=== PATIENT | male | born 1990 | race Caucasian/White ===

== ENCOUNTER → 2018-07-14 10:00 | Outpatient (CLI) | payer MEDICAID, SELFPAY ==
[2018-07-14 10:42] LABS: INR 2.7 (1.0-3.5); Prothrombin Time 25.3 sec (9.3-10.8)
== END ==
PROVIDERS: PCP Internal Medicine; Visit Provider Physician Assistant Medical
DX: Z79.01 Long term (current) use of anticoagulants (principal)
CPT/HCPCS: 36415; 85610

== ENCOUNTER 2018-08-22 15:18 | Outpatient (CLI) | payer MEDICAID, SELFPAY ==
[2018-08-22 17:12] LABS: INR 2.5 (1.0-3.5); Prothrombin Time 23.3 sec (9.3-10.8)
== END 2018-08-22 15:38 ==
PROVIDERS: PCP Internal Medicine; Visit Provider Physician Assistant Medical
DX: Z79.01 Long term (current) use of anticoagulants (principal)
CPT/HCPCS: 36415; 85610

== ENCOUNTER 2018-10-13 07:55 | Outpatient (CLI) | payer MEDICAID, SELFPAY ==
[2018-10-13 08:24] LABS: INR 2.8 (1.0-3.5); Prothrombin Time 26.3 sec (9.3-10.8)
== END 2018-10-13 08:15 ==
PROVIDERS: PCP Internal Medicine; Visit Provider Physician Assistant Medical
DX: Z79.01 Long term (current) use of anticoagulants (principal); R69 Illness, unspecified
CPT/HCPCS: 36415; 85610

== ENCOUNTER 2018-12-15 09:41 | Outpatient (CLI) | payer MEDICAID, SELFPAY ==
[2018-12-15 10:11] LABS: INR 2.7 (0.9-1.1); Prothrombin Time 26.8 sec (9.3-11.0)
== END 2018-12-15 10:01 ==
PROVIDERS: PCP Internal Medicine; Visit Provider Physician Assistant Medical
DX: Z79.01 Long term (current) use of anticoagulants (principal); Z95.5 Presence of coronary angioplasty implant and graft
CPT/HCPCS: 36415; 85610

== ENCOUNTER 2019-02-01 09:41 | Outpatient (CLI) | payer MEDICAID, SELFPAY ==
[2019-02-01 10:29] LABS: INR 2.6 (0.9-1.1); Prothrombin Time 26.7 sec (9.3-11.0)
== END 2019-02-01 10:01 ==
PROVIDERS: PCP Internal Medicine; Visit Provider Physician Assistant Medical
DX: Z79.01 Long term (current) use of anticoagulants (principal)
CPT/HCPCS: 36415; 85610

== ENCOUNTER 2019-03-26 11:08 | Outpatient (REF) | payer MEDICAID, SELFPAY ==
[2019-03-26 20:06] LABS: HCT 46.9 % (40.0-50.0); HGB 16.7 g/dL (13.5-17.5); Mean Corp. HGB Concentration 35.6 g/dL (32.0-36.0); Mean Corpuscular Hemoglobin 31.4 pg (27.0-33.0); Mean Corpuscular Volume 88.2 fL (80-95); Platelet Count 211 x1000/uL (130-400); RBC 5.32 m/cumm (4.50-6.00); RBC Distribution Width 12.4 % (11.8-14.1); White Blood Cell Count 9.94 k/cumm (4.4-10.8)
[2019-03-26 20:19] LABS: BUN 21 mg/dL (7-18); CREATININE 0.86 mg/dL (0.70-1.30); Calcium 9.1 mg/dL (8.5-10.1); Chloride 102 mmol/L (98-107); Glucose 64 mg/dL (70-100); Potassium 4.2 mmol/L (3.5-5.1); Sodium 139 mmol/L (136-145)
== END 2019-03-26 11:28 ==
LOC: NCHCN 11:08
PROVIDERS: PCP Internal Medicine; Visit Provider Physician Assistant Medical
DX: Z95.2 Presence of prosthetic heart valve (principal); Z79.01 Long term (current) use of anticoagulants
CPT/HCPCS: 80048; 85027

== ENCOUNTER 2019-06-07 10:16 | Outpatient (CLI) | payer MEDICAID, SELFPAY ==
[2019-06-07 11:15] LABS: INR 2.5 (0.9-1.1); Prothrombin Time 25.1 sec (9.3-11.0)
== END 2019-06-07 10:36 ==
PROVIDERS: PCP Internal Medicine; Visit Provider Physician Assistant Medical
DX: Z95.2 Presence of prosthetic heart valve (principal); Z79.01 Long term (current) use of anticoagulants
CPT/HCPCS: 36415; 85610

== ENCOUNTER 2019-11-16 15:49 | Outpatient (CLI) | payer MEDICAID, SELFPAY ==
[2019-11-16 16:43] LABS: INR 2.3 (0.9-1.1); Prothrombin Time 22.2 sec (9.3-11.0)
== END 2019-11-16 16:09 ==
PROVIDERS: PCP Internal Medicine; Visit Provider Nurse Practitioner Family
DX: Z79.01 Long term (current) use of anticoagulants (principal); Z95.2 Presence of prosthetic heart valve
CPT/HCPCS: 36415; 85610

== ENCOUNTER 2019-12-10 15:36 | Outpatient (CLI) | payer MEDICAID, SELFPAY ==
[2019-12-10 16:04] LABS: INR 2.1 (0.9-1.1); Prothrombin Time 20.6 sec (9.3-11.0)
== END 2019-12-10 15:56 ==
PROVIDERS: PCP Internal Medicine; Visit Provider Internal Medicine
DX: Z95.2 Presence of prosthetic heart valve (principal); Z79.01 Long term (current) use of anticoagulants
CPT/HCPCS: 36415; 85610

== ENCOUNTER 2019-12-21 09:38 | Outpatient (CLI) | payer MEDICAID, SELFPAY ==
[2019-12-21 10:20] LABS: Prothrombin Time 33.6 sec (9.3-11.0)
[2019-12-21 10:23] LABS: INR 3.4 (0.9-1.1)
== END 2019-12-21 09:58 ==
PROVIDERS: PCP Internal Medicine; Visit Provider Nurse Practitioner Family
DX: Z95.2 Presence of prosthetic heart valve (principal); Z79.01 Long term (current) use of anticoagulants
CPT/HCPCS: 36415; 85610

== ENCOUNTER 2020-01-17 09:46 | Outpatient (CLI) | payer MEDICAID, SELFPAY ==
[2020-01-17 10:12] LABS: INR 3.7 (0.9-1.1); Prothrombin Time 35.6 sec (9.3-11.0)
== END 2020-01-17 10:06 ==
PROVIDERS: PCP Internal Medicine; Visit Provider Nurse Practitioner Family
DX: Z95.2 Presence of prosthetic heart valve (principal); Z79.01 Long term (current) use of anticoagulants
CPT/HCPCS: 36415; 85610

== ENCOUNTER 2020-07-14 09:12 | Outpatient (CLI) | payer MEDICAID, SELFPAY ==
[2020-07-16 21:34] LABS: SARS-CoV-2 RNA Undetected (Undetected)
== END 2020-07-14 09:32 ==
PROVIDERS: PCP Internal Medicine; Visit Provider Family Medicine
DX: Z11.59 Encounter for screening for other viral diseases (principal)
CPT/HCPCS: U0003

== ENCOUNTER → 2022-08-06 14:58 | Outpatient (CLI) | payer MEDICAID, SELFPAY ==
--- NOTE | 2022-08-06 10:01 | DI.RAD_ITS ---
Exam(s) XR LUMBAR SPINE COMPLETE EXAM: XR LUMBAR SPINE COMPLETE CLINICAL HISTORY: RT HIP JOINT PAIN. TECHNIQUE: 2D digital imaging was performed of the lumbar spine. Five images were obtained. AP, la teral, right oblique, left oblique and L5-S1 spot views were obtained. COMPARISON: No exams were available for comparison FINDINGS: BONES: No fracture or destructive lesion. There is mild spurring at the L4-5 disc space. No facet hy pertrophy identified. DISKS: Intervertebral disc spaces are maintained. ALIGNMENT: Lumbar spinal alignment is within normal limits. No spondylolysis or spondylolisthesis. SOFT TISSUE: Normal. IMPRESSION: Mild degenerative changes in the lumbar spine at L4-5. DATA REPOSITORY: RADIATION DOSE DELIVERED:
--- NOTE | 2022-08-06 10:01 | DI.RAD_ITS ---
Exam(s) XR HIP RT COMPLETE AP PELVIS EXAM: XR HIP RT COMPLETE AP PELVIS CLINICAL HISTORY: RT HIP PAIN M25.551. TECHNIQUE: 2D digital imaging was performed of the right hip. Two images were obtained. AP pelvis a nd lateral right hip views were obtained. COMPARISON: No exams were available for comparison FINDINGS: BONES: No acute fracture is present. No bony destructive lesion is seen. JOINTS: No dislocation present. SOFT TISSUE: Normal. IMPRESSION: Unremarkable radiographs of the right hip. Unremarkable radiographs of the pelvis. DATA REPOSITORY: RADIATION DOSE DELIVERED:
== END ==
PROVIDERS: PCP Family Medicine; Visit Provider Family Medicine
DX: M47.816 Spondylosis without myelopathy or radiculopathy, lumbar region (principal); M25.551 Pain in right hip
CPT/HCPCS: 72110; 73502

== ENCOUNTER 2022-08-12 09:09 | Emergency (ER) | payer MEDICAID, SELFPAY ==
[2022-08-12] VITALS (34 sets, daily range): BP systolic 118–142; BP diastolic 74–103; PULSE 69–88; RESP 8–24; TEMP 36.5; O2SAT 99
--- NOTE | 2022-08-12 09:00 | RT.EKG_ITS ---
APPROVED REPORT Exam: Resting ECG Reason for Exam: TACHYCARDIA Patient Location: E HR:87 bpm ECG Measurements Heart Rate 87 AXIS ND 141 P 55 QRSd 91 QRS 66 QT 338 T -46 QTc 403 Conclusion Sinus rhythm...normal P axis, V-rate 60- 99 Atrial premature complexes...SV complexes w/ short R-R intvls. Sinus. Normal axis. T wave inversion in III, seen in previous, new in II and aVF. No STEMI.
--- NOTE | 2022-08-12 09:30 | DI.RAD_ITS ---
Exam(s) XR PORTABLE CHEST AP EXAM: XR PORTABLE CHEST AP CLINICAL HISTORY: chest pain TECHNIQUE: 2D digital imaging was performed of the chest. Two images was obtained. AP views was obt ained. COMPARISON: CR CHEST 2 VIEWS PA,LAT from 10/26/2017 FINDINGS: MEDIASTINUM: Normal. HEART: Normal. Since the prior examination the patient has undergone a valvular replacement. PULMONARY VASCULATURE: Normal. LUNGS: Clear. PLEURAL SPACE: No pleural effusion or pneumothorax. BONE:Within normal limits for the patient's age. Sternal wires are in place. OTHER FINDINGS:Normal. IMPRESSION: No acute pulmonary findings. DATA REPOSITORY: RADIATION DOSE DELIVERED:
[2022-08-12 09:50] LABS: Abs Immature Grans 0.06 10^3/uL (0.0-0.06); Absolute Basophil Count 0.04 10^3/uL (0.0-0.2); Absolute Eosinophil Count 0.26 10^3/uL (0.0-0.7); Absolute Lymphocyte Count 1.98 10^3/uL (1.2-3.4); Absolute Monocyte Count 0.39 10^3/uL (0.1-0.8); Basophils % 0.5; Eosinophils % 3.5; HCT 42.3 % (40.0-50.0); HGB 14.7 g/dL (13.5-17.5); Immature Grans % 0.8; MCH 30.8 pg (27.0-33.0); MCHC 34.8 % (32.0-36.0); MCV 89 fL (80-95); MPV 8.7 fL (8.0-11.0); Monocytes % 5.3; Neutrophils % 62.9; Platelet Count 321 10^3/uL (130-400); RBC 4.78 10^6/uL (4.36-5.78); RDW 12.2 % (11.8-14.1); RDW-SD 39.6 fL; WBC 7.33 10^3/uL (4.4-10.8)
[2022-08-12 10:12] LABS: Prothrombin Time 51.8 sec (9.3-11.0)
[2022-08-12 10:18] LABS: ALT 33 U/L (16-63); AST 38 U/L (15-37); Albumin 3.7 g/dL (3.4-5.0); Alkaline Phosphatase 65 U/L (46-116); Anion Gap 3.5 mmol/L (3-11); BUN 14 mg/dL (7-18); CO2 31.5 mmol/L (21.0-32.0); CREATININE 0.8 mg/dL (0.70-1.30); Calcium 8.9 mg/dL (8.5-10.1); Chloride 101 mmol/L (98-107); Estimated GFR 120.59 (mL/min/1.73m2); Glucose 81 mg/dL (74-106); Magnesium 1.9 mg/dL (1.8-2.4); Potassium 3.9 mmol/L (3.5-5.1); Sodium 136 mmol/L (136-145); Total Protein 7.8 g/dL (6.4-8.2); Troponin I < 50 ng/L (<or=60)
[2022-08-12 10:26] LABS: INR 5.8 (0.9-1.1)
--- NOTE | 2022-08-12 11:55 | ED.GENADUL_ITS ---
Discharge Plan Disposition Patient Disposition: HOME Condition: Stable Discharge Details Clinical Impression: Supratherapeutic INR, Palpitation, Hx of mechanical aortic valve replacement, Hx of mitral valve replacement Primary Care Provider: Shaheen Rhoades ED Provider: Peyton Taylor Home Meds and New Rx's Prescriptions: Continued acetaminophen [Tylenol] 325 mg capsule 325 mg PO ONCE PRN metoprolol succinate 50 mg tablet extended release 24 hr 50 mg PO DAILY Held warfarin 2.5 mg tablet 7.5 mg PO DAILY Hold Instructions: Resume on 08/14/22. pending INR Discharge Instructions Instructions: Heart Palpitations (ED) Additional Instructions: Hold your Coumadin until your INR is improving Check your INR again tomorrow Watch your diet carefully Follow-up with your scarrer schedule appointment regarding her symptoms The specialty clinic Should call you to place that Holter monitor Continue taking her metoprolol as prescribed should you developed any obvious source of bleeding in your urine, stool, or any pressure Renee should be reassessed Should he develop chest pain or shortness of breath or any swelling in your legs or arms, you must return immediately for reassessment Referrals: Shaheen Rhoades MD [Primary Care Provider] - 1 day Discharge Orders Other Ambulatory Orders: Holter Monitor (Routine) Timeframe: 1 Week Facility: [facility] - Location: Respiratory Therapy Ordered By: Peyton Taylor Discharge Data Discharge Date/Time-TO BE ENTERED AT DEPARTURE: 08/12/22 12:37 Medical Decision Making Patient INR 5.8 EKG and troponin without acute abnormality, EKG was compared to prior at [facility] which there is no significant change Reviewed prior echocardiogram Patient has not had tachycardia or obvious ominous dysrhythmia while in the emergency department Clinically low suspicion for PE as patient is supratherapeutic with INR I suspect this is prednisone related and he discontinued this med He will continue to skip his treatment until his INR falls below 4 Case was discussed with Franklyn Hendrix, nurse practitioner [facility] and they will follow up closely with patient He is discharged home with Holter monitor ordered for tomorrow Return precautions discussed and patient expressed understanding Discharged home in stable condition with stable vital Medical Records Medical records reviewed: Yes I reviewed the patient's medical records. Lab Data Lab results reviewed: Yes I reviewed the patient's lab results. HPI General Date/Time Provider Initiated Documentation: 08/12/22 09:21 . HPI Narrative: 32-year-old gentleman with history of mechanical mitral and aortic valves presents with reports of palpitations and tachycardia. Is been going on since yesterday. He states that he had intermittent episodes of heart rate as high as 115. He denies any fever or chills. States taking his Coumadin as prescribed a ctually states that his INR yesterday was 5. He denies any change in diet although he was recently on prednisone and a muscle relaxant, he completed the prednisone 2 days ago. He states that he skipped his dose of Coumadin today. He denies any chest pain. He denies any shortness of breath. He denies any peripheral edema or weight gain. Related Data Home Medications Medication Instructions Recorded Confirmed metoprolol succinate 50 mg 50 mg PO DAILY 07/13/22 07/28/22 tablet,extended release 24 hr warfarin 2.5 mg tablet 7.5 mg PO DAILY 07/13/22 07/28/22 acetaminophen 325 mg capsule 325 mg PO ONCE PRN 07/28/22 07/28/22 (Tylenol) Allergies Allergy/AdvReac Type Severity Reaction Status Date / Time No Known Allergies Allergy Unverified 07/28/22 10:27 General Stated Complaint: Palpitatns SABRINA: 3 Review of Systems All systems reviewed & are unremarkable except as noted in HPI and below PFSH All Active Problems (Updated 08/12/22 @ 11:58 by MADAY Zaragoza) Supratherapeutic INR (Acute) Palpitation (Acute) Hx of mechanical aortic valve replacement (Acute) Hx of mitral valve replacement (Acute) Palpitations (Acute) Dislocation of left shoulder joint (Acute 06/28/22) Fever (Acute) Heart murmur (Acute) Elevated troponin I level (Acute) Anemia (Acute) Right foot pain (Acute) Medical History (Updated 08/12/22 @ 11:58 by MADAY Zaragoza) Adjustment disorder with anxiety H/O bacterial endocarditis Raynauds disease Surgical History (Updated 08/12/22 @ 11:58 by MADAY Zaragoza) History of mechanical aortic valve replacement Social History Smoking/Tobacco Use Status: Never Smoking risk assessment performed?: Yes Alcohol Intake: current Alcohol Intake frequency: a few times a month Drug use: Never Current gender identity: male Do you feel safe at home: Yes Do you feel safe in your relationship?: Yes Exam Const General: cooperative, comfortable and no acute distress Eyes Sclera: sclerae normal Resp Effort & Inspection: normal respiratory effort Auscultation: clear to auscultation bilaterally Cardio Rate: regular rate Rhythm: regular rhythm Other: distal pulses intact GI Inspection: normal to inspection Skin General skin exam: no rashes or lesions noted Neuro General: patient alert and patient oriented x3 Extrem Other: distal pulses intact, no calf swelling or tenderness Course Vital Signs Vital signs: Vital Signs Temperature 36.5 C 08/12/22 09:19 Pulse 88 08/12/22 09:19 Respiratory Rate 10 L 08/12/22 09:19 Blood Pressure 135/81 08/12/22 09:19 Pulse Oximetry 99 08/12/22 09:19 Temperature 36.5 C 08/12/22 09:19 Temperature Source Temporal Artery Scan 08/12/22 09:19 Pulse 72 08/12/22 11:01 Pulse 73 08/12/22 11:01 Respiratory Rate 20 08/12/22 11:01 Respiratory Effort 08/12/22 09:38 Blood Pressure 142/87 H 08/12/22 11:01 Blood Pressure Mean 99 08/12/22 11:01 Blood Pressure Position Sitting 08/12/22 09:19 Pulse Oximetry 99 08/12/22 09:19 Oxygen Delivery Method Room Air 08/12/22 09:19 Oxygen Flow Rate 0 08/12/22 09:19 Pain Level 0 08/12/22 09:19 Lab/Test Results Lab/Test Results: Laboratory Tests Range/Units 08/12/22 08/12/22 08/12/22 09:34 09:34 09:34 WBC (4.4-10.8) 10^3/uL 7.33 RBC (4.36-5.78) 10^6/uL 4.78 Hgb (13.5-17.5) g/dL 14.7 Hct (40.0-50.0) % 42.3 MCV (80-95) fL 89 MCH (27.0-33.0) pg 30.8 MCHC (32.0-36.0) % 34.8 RDW (11.8-14.1) % 12.2 Plt Count (130-400) 10^3/uL 321 MPV (8.0-11.0) fL 8.7 Immature Gran % 0.8 Neutrophils % 62.9 Lymphocytes % 27.0 Monocytes % 5.3 Eosinophils % 3.5 Basophils % 0.5 Nucleated RBC % (0.0-0.3) % 0.0 Absolute Neutrophils (1.2-6.7) 10^3/uL 4.60 Absolute Lymphocytes (1.2-3.4) 10^3/uL 1.98 Absolute Monocytes (0.1-0.8) 10^3/uL 0.39 Absolute Eosinophils (0.0-0.7) 10^3/uL 0.26 Absolute Basophils (0.0-0.2) 10^3/uL 0.04 PT (9.3-11.0) sec 51.8 H INR (0.9-1.1) 5.8 H* Sodium (136-145) mmol/L 136 Potassium (3.5-5.1) mmol/L 3.9 Chloride (98-107) mmol/L 101 Carbon Dioxide (21.0-32.0) mmol/L 31.5 Anion Gap (3-11) mmol/L 3.5 BUN (7-18) mg/dL 14 Creatinine (0.70-1.30) mg/dL 0.8 Est GFR (CKD-EPI 2020) (mL/min/1.73m2) 120.59 Glucose (74-106) mg/dL 81 Calcium (8.5-10.1) mg/dL 8.9 Magnesium (1.8-2.4) mg/dL 1.9 Total Bilirubin (0.2-1.0) mg/dL 1.0 AST (15-37) U/L 38 H ALT (16-63) U/L 33 Alkaline Phosphatase (46-116) U/L 65 Troponin I (<or=60) ng/L < 50 Total Protein (6.4-8.2) g/dL 7.8 Albumin (3.4-5.0) g/dL 3.7
[2022-08-12 12:52] LABS: Troponin I < 50 ng/L (<or=60)
== END 2022-08-12 12:37 | disposition home or self-care (01) ==
PROVIDERS: Emergency Provider Physician Assistant; PCP Family Medicine
DX: R00.2 Palpitations (principal); R79.1 Abnormal coagulation profile; Z95.2 Presence of prosthetic heart valve
CPT/HCPCS: 80053; 93005; 99284; 71045; 83735; 84484; 85025; 85610; 93010

== ENCOUNTER 2023-05-25 00:20 | Outpatient (CLI) | payer MEDICAID, SELFPAY ==
--- NOTE | 2023-05-25 07:30 | DI.US_ITS ---
APPROVED REPORT EXAM: Comprehensive 2D, Doppler, and color-flow Echocardiogram Patient Location: Out-Patient Senior Technical Writer: Bassam Wiley RDMS, RVT Indications: S/P AV REPLACEMENT, MV REPLACEMENT, HISTORY SUBACUTE BACTERIAL ENDOCARDITIS Other Information Study Quality: Adequate Conclusion Normal left ventricular wall thickness and chamber size. Ejection fraction is 60%. Wall motion is n ormal Normal right ventricular size and systolic function Both atria appear normal in size There is mechanical aortic valve replacement. Mean gradient is 6. There is trace paravalvular regur gitation There is a mechanical mitral valve replacement Mildly dilated ascending aorta measuring 3.68 cm Estimated right ventricular systolic pressure is 25 mmHg Wall motion Left Ventricle The left ventricle is normal size. The left ventricular systolic function is normal. The left ventric ular ejection fraction is within the normal range. There is normal left ventricular wall thickness. T here is normal LV segmental wall motion. There is no ventricular septal defect visualized. LVEF is 60 %. Right Ventricle The right ventricle is normal size. The right ventricular systolic function is normal. The RVSP is 25 .0 mmHg. Atria Left atrium is not well visualized due to mechanical valve. Appears grossly normal in size. The right atrium size is normal. The interatrial septum is intact with no evidence for an atrial septal defect . Aortic Valve Mechanical aortic valve is present. Trace paravalvular regurgitation Mechanical aortic valve is prese nt. Mitral Valve Mechanical prosthetic mitral valve is present. Mechanical prosthetic mitral valve is present. Tricuspid Valve The tricuspid valve is normal in structure. There is no tricuspid valve stenosis. Trace tricuspid reg urgitation. Pulmonic Valve The pulmonary valve is normal in structure. There is no pulmonic valvular stenosis. There is no pulmo jessy valvular regurgitation. Great Vessels The aortic root is normal in size. The ascending aorta is mildly dilated. Aortic arch is normal in ca liber. IVC is normal in size and collapses >50% with inspiration. Pericardium There is no pericardial effusion. 2D Dimensions IVSD d PLAX 0.81 cm M: 0.6-1.2 LV Vol A2C d MOD 130.5 mL LVPW d PLAX 0.81 cm M: 0.6 - 1.2 LV Vol A4C d MOD 149.8 mL LVID d PLAX 5.10 cm M: 4.2 - 5.8 LV EF A4C MOD 46.5 % LVDs 3.50 cm M: 2.5 - 4.0 LV EF A2C MOD 45.8 % Ao Root d 3.66 cm M: 3.1 - 3.7 LV EF Biplane MOD 47.7 % Ao Asc Diam d 3.68 cm M: 2.6 - 3.4 SV 68.99 mL LV EF Teichholz 57.7 % SV Index 33.78 mL/m2 LVEF (Boudreaux's) 47.71 % M: 52 - 72 LV Volume 107.71 mL M: 62 - 150 LV Volume Index 52.79 mL/m2 M: 34 - 74 LV Vol Biplane MOD 144.6 mL FS 30.50 % M-Mode TAPSE 1.76 cm (M/F) >1.7 LV Diastology MV E' medial 0.109 (>0.07 m/s) E/A Ratio 1.5 LV E/e MED 12.55 (<14) MV E Vmax 1.37 (0.4-1.3 m/s) MV E' lateral 0.092 (>0.1 m/s) MV A Vmax 0.90 (0.4-1.3 m/s) LV E/e LAT 14.90 (<14) MV E/A Ratio 1.51 MV E/E' medial 12.58 MV E/E' lateral 14.92 Aortic Valve LVOT Area 3.95 cm2 AoV Area Vmax 2.09 cm2 LVOT Vmax 0.86 m/s AoV Area/ BSA (Vmax) 1.02 cm2/m2 LVOT Mean Arley. 0.60 m/s DEVONTE Mean Arley. 2.05 cm2 LVOT Peak Grad 3.0 mmHg DEVONTE Mean Arley. Index 1.00 cm2/m2 LVOT Mean Grad 1.6 mmHg LVOT VTI 0.210 m LVOT Diam s 2.20 cm AoV Vmax 1.63 m/s Velocity Ratio 0.53 AoV Mean Arley. 1.16 m/s AoV Peak Grad 10.6 mmHg LVOT SV 83.17 mL AoV Mean Grad 6.0 mmHg AoV VTI 0.328 m AoV Area VTI 2.53 cm2 AoV Area/ BSA (VTI) 1.24 cm/m2 Mitral Valve MV DT 369 (160-240 msec) MV PHT 107 msec MV Area PHT 2.06 cm2 MV VTI 0.387 m MV Area VTI 2.15 (4.0-6.0 cm2) Pulmonary Valve PV Vmax 0.85 (0.5-1.5 m/s) RVOT Peak Gr. 2.11 mmHg PV Peak Grad 2.9 mmHg RVOT Mean Gr. 1.00 mmHg PV Mean Grad 1.6 mmHg RVOT VTI 0.153 m PV VTI 0.186 m RVOT Vmax 0.73 m/s Tricuspid Valve TR Peak Grad 22.0 mmHg TR Vmax 2.35 m/s RA Pressure 3.00 mmHg RVSP (TR) 25.0 mmHg
== END 2023-05-25 00:40 ==
LOC: DI 00:20
PROVIDERS: PCP Family Medicine; Visit Provider Student in an Organized Health Care Education/Training Program
DX: Z95.4 Presence of other heart-valve replacement (principal); Z86.79 Personal history of other diseases of the circulatory system
CPT/HCPCS: 93306

== ENCOUNTER 2023-06-07 10:22 | Outpatient (REF) | payer MEDICAID, SELFPAY ==
[2023-06-07 14:36] LABS: HCT 46.5 % (40.0-50.0); HGB 16.3 g/dL (13.5-17.5)
== END 2023-06-07 10:23 | disposition home or self-care (01) ==
LOC: NCHCN 10:22
PROVIDERS: PCP Family Medicine; Visit Provider Family Medicine
DX: M25.512 Pain in left shoulder (principal); M25.551 Pain in right hip; Z95.2 Presence of prosthetic heart valve; Z79.01 Long term (current) use of anticoagulants
CPT/HCPCS: 85014; 85018

== ENCOUNTER → 2023-11-04 00:36 | Outpatient (CLI) | payer MEDICAID, SELFPAY ==
--- NOTE | 2023-11-04 08:18 | DI.RAD_ITS ---
Exam(s) XR KNEE LT 3V AP,LAT,PING EXAM: XR KNEE LT 3V AP,LAT,PING CLINICAL HISTORY: PAIN LT KNEE M25.562 TENDERNESS OVER MCL AND ON MEDICAL TIBIAL TUBEROSITY. TECHNIQUE: 2D digital imaging was performed. COMPARISON: No exams were available for comparison FINDINGS: Four views No evidence fracture or joint effusion. No joint space narrowing. No osteophytes. Bone density nor mal.. IMPRESSION: No significant osseous findings in the knee. DATA REPOSITORY: RADIATION DOSE DELIVERED:
== END ==
PROVIDERS: PCP Family Medicine; Visit Provider Physician Assistant Medical
DX: M25.562 Pain in left knee (principal)
CPT/HCPCS: 73562

== ENCOUNTER → 2023-11-15 00:40 | Outpatient (CLI) | payer MEDICAID, SELFPAY ==
--- NOTE | 2023-11-15 | DI.MRI_ITS ---
Exam(s) MR LOWER JOINT LT WO EXAM: MR LOWER JOINT LT WO CLINICAL HISTORY: PAIN LEFT KNEE M25.562 TECHNIQUE: Multiplanar multisequence MRI of the knee was performed. COMPARISON: CR XR KNEE LT 3V AP,LAT,PING from 11/04/2023 FINDINGS: EFFUSION: There is a small joint effusion. There is no Hernandez cyst in the popliteal fossa. MARROW:There is intraosseous signal abnormality in the lateral tibial plateau trabecular fracture yariel e evident extending from the sub spinous region to the most lateral aspect. No abnormal signal in th e fibular head and neck. No abnormal signal in the medial tibial plateau. There is bone edema and s ubtle subarticular fracture line in the outer aspect of the medial femoral condyle. There are no sig nificant osseous lesions. PATELLOFEMORAL COMPARTMENT: The quadriceps tendon is intact. The patellar ligament is intact. There is no significant thinning of the retropatellar cartilage. No evidence of fissure nor signific ant chondral defect. No osteochondral defect at this level.There is no intraosseous signal to sugges t recent patellar dislocation. MEDIAL COLLATERAL LIGAMENT: There is significant tearing of the medial capsular structures including the posterior aspect of the medial patellar retinaculum and junction with medial collateral ligament as well as partial tearing of the medial collateral ligament. CRUCIATE LIGAMENTS: Some signal abnormality but no full-thickness tear.The posterior cruciate ligamen t exhibits significant high-grade partial tearing. MEDIAL COMPARTMENT/MEDIAL MENISCUS: There are no tears of the medial meniscus evident.The meniscal ro ot is intact. No meniscal extrusion nor intrusion.. There is signal abnormality in the inner aspect of the articular cartilage over the medial femoral co ndyle. There is no evidence of osteochondral defect at this level. Medial tibial plateau unremarkable. LATERAL COMPARTMENT/LATERAL MENISCUS: There is no evidence of lateral meniscal tear.There are no neri dral defects, osteochondral defects, subarticular marrow edema, nor osteophytes evident. ILIOTIBIAL BAND: Intact LATERAL COLLATERAL LIGAMENT COMPLEX: The fibular collateral ligament is intact. The biceps femoris t endon is intact.Popliteus muscle and tendon are intact. IMPRESSION: 1. There is significant tearing of capsular structures on the medial aspect of the knee with high-gra de partial tearing of the medial collateral ligament at its attachment on the outer aspect of the med ial femoral condyle as well as signal abnormality interposed between the deep and superficial layers of this structure and mild medial meniscocapsular separation, but without evidence of distinct medial meniscal tear. There are subtle trabecular fracture lines at the insertional aspect of the triceps site in the outer aspect of the medial femoral condyle. 2. There trabecular fracture line is located approximately 1 cm below the articular surface of the la teral tibial plateau. There is no depressed tibial plateau fracture. No abnormal intraosseous signa l in the lateral femoral condyle nor in the fibular head and neck. 3. There appears to be high-grade partial tearing of the inferior half of the posterior cruciate liga ment and also partial thickness tearing of the anterior cruciate. 4. Iliotibial band and components of the lateral collateral ligament complex appear intact. 5. No meniscal tears evident. DATA REPOSITORY:
== END ==
PROVIDERS: PCP Family Medicine; Visit Provider Physician Assistant Medical
DX: S83.412A Sprain of medial collateral ligament of left knee, initial encounter (principal); S83.522A Sprain of posterior cruciate ligament of left knee, initial encounter; S83.512A Sprain of anterior cruciate ligament of left knee, initial encounter; X58.XXXA Exposure to other specified factors, initial encounter
CPT/HCPCS: 73721

== ENCOUNTER → 2024-04-30 02:05 | Outpatient (CLI) | payer MEDICAID, SELFPAY ==
--- NOTE | 2024-04-30 09:30 | DI.US_ITS ---
APPROVED REPORT EXAM: Comprehensive 2D, Doppler, and color-flow Echocardiogram Patient Location: Out-Patient Gum Cook: Bassam Wiley RDCS (AE) Indications: Surveillance, s/p AV and MV repair Conclusion Normal left ventricular wall thickness and chamber size. Ejection fraction is 60%. Wall motion is n ormal Normal right ventricular size and function Both atria are normal in size There is a mechanical aortic valve prosthesis. Mean gradient is 5 mm Hg. There is trace aortic regu rgitation There is a mechanical mitral valve replacement. There may be trace/mild mitral regurgitation Normal tricuspid valve with mild regurgitation. Estimated right ventricular systolic pressure is 21 mmHg Dilated aortic root (4 cm) and ascending aorta (3.73 cm) Wall motion Left Ventricle The left ventricle is normal size. The left ventricular systolic function is normal. The left ventric ular ejection fraction is within the normal range. There is normal left ventricular wall thickness. T here is normal LV segmental wall motion. There is no ventricular septal defect visualized. LVEF is 60 %. Right Ventricle The right ventricle is normal size. Right ventricular systolic function is grossly normal. Atria The left atrium size is normal. The right atrium size is normal. The interatrial septum is intact wit h no evidence for an atrial septal defect. Aortic Valve Mechanical aortic valve is present. Trace regurgitation Mitral Valve Mechanical prosthetic mitral valve is present. Mild mitral regurgitation? Tricuspid Valve The tricuspid valve is normal in structure. There is no tricuspid valve stenosis. Mild tricuspid regu rgitation. The RVSP is 21.1 mmHg. Pulmonic Valve The pulmonary valve is normal in structure. There is no pulmonic valvular stenosis. There is no pulmo jessy valvular regurgitation. Great Vessels There is moderate aortic root dilation. The ascending aorta is mildly dilated. Aortic arch is normal in caliber. IVC is normal in size and collapses >50% with inspiration. Pericardium There is no pericardial effusion. 2D Dimensions IVSD d PLAX 1.07 cm M: 0.6-1.2 Ao Root d 4.01 cm M: 3.1 - 3.7 LVPW d PLAX 1.10 cm M: 0.6 - 1.2 Ao Asc Diam d 3.73 cm M: 2.6 - 3.4 LVID d PLAX 5.06 cm M: 4.2 - 5.8 LVDs 3.44 cm M: 2.5 - 4.0 LV EF Teichholz 59.8 % FS 31.97 % LV EDV (Teich) 121.6 mL LV ESV (Teich) 48.9 mL Stroke Vol Index (Teich) 36.00 M-Mode TAPSE 1.58 cm (M/F) >1.7 Auto EF LV EDV A4C 142.6 mL LV EDV A2C 170.8 mL LV EDV BP 155.3 mL LV ESV A4C 57.5 mL LV ESV A2C 68.5 mL LV ESV BP 62.4 mL LVEF(%) A4C 59.7 % LVEF(%) A2C 59.9 % LVEF(%) BP 59.8 % LV SV A4C 85.1 ml LV SV A2C 102.3 ml LV SV BP 92.9 ml LV CO A4C 4.8 L/min LV CO A2C 5.7 L/min LV CO BP 5.2 L/min HR A4C 55.90 BPM HR A2C 55.90 BPM LV EDV Index (BP) RA Volume RA Area A4C 16.6 cm2 RA ESV A4C (A-L) 45.9mL RA Vol/BSA A4C A-L RA Length A4C 5.1 cm RA ESV A4C (MOD) 43.7mL LV Diastology MV E' medial 0.080 (>0.07 m/s) MV E Vmax 1.22 (0.4-1.3 m/s) MV E/E' MED 15.35 (<14) MV A Vmax 0.80 (0.4-1.3 m/s) MV E' lateral 0.105 (>0.1 m/s) E/A Ratio 1.5 MV E/E' LAT 11.63 (<14) MV E' Average 0.092 m/s MV E/E'(average) 13.23 Aortic Valve AoV Vmax 1.52 m/s LVOT Vmax 0.86 m/s AoV Peak Grad 9.3 mmHg LVOT Peak Grad 3.0 mmHg AoV Area (Vmax) 1.73 cm2 LVOT VTI 0.144 m AoV VTI 0.235 m LVOT Mean Grad 1.5 mmHg AoV Mean Arley. 1.08 m/s LVOT SV 43.73 mL AoV Mean Grad 5.3 mmHg LVOT Diam s 1.95 cm AoV Area (VTI) 1.86 cm2 Velocity Ratio 0.57 Mitral Valve MV DT 419 (160-240 msec) Pulmonary Valve PV Vmax 0.79 (0.5-1.5 m/s) RVOT Vmax 0.82 m/s PV Peak Grad 2.5 mmHg RVOT Peak Gr. 2.7 mmHg PV Mean Arley 0.57 m/s RVOT VTI 0.173 m PV Mean Grad 1.5 mmHg RVOT Mean Gr. 1.4 mmHg Tricuspid Valve RA Pressure 3.00 mmHg TR Vmax 2.13 m/s TR Peak Grad 18.1 mmHg RVSP (TR) 21.1 mmHg
== END ==
PROVIDERS: PCP Family Medicine; Visit Provider Student in an Organized Health Care Education/Training Program
DX: Z95.818 Presence of other cardiac implants and grafts; I35.1 Nonrheumatic aortic (valve) insufficiency; I34.0 Nonrheumatic mitral (valve) insufficiency; I77.810 Thoracic aortic ectasia
CPT/HCPCS: 93306

== ENCOUNTER 2025-08-19 13:56 | Outpatient (REF) | payer MEDICAID, SELFPAY ==
[2025-08-20 11:43] LABS: Lyme Ab w Rflx to Lyme Confirm Positive (Negative)
[2025-08-20 16:06] LABS: Lyme IgG Ab Positive (Negative)
== END 2025-08-19 13:57 | disposition home or self-care (01) ==
LOC: LBN 13:56
PROVIDERS: PCP Family Medicine; Visit Provider Physician Assistant
DX: R21 Rash and other nonspecific skin eruption (principal)
CPT/HCPCS: 86617; 86618